=== PATIENT | female | born 1955 | race Caucasian/White ===

== ENCOUNTER → 2017-03-07 | Outpatient (CLI) | payer OTHER ==
[2017-03-07 13:51] LABS: BLOOD UREA NITROGEN 12 mg/dl (7-18); BUN/CREATININE RATIO 17.4 (10-20); CARBON DIOXIDE 28 mmol/L (21-32); CHLORIDE 108 mmol/L (98-107); CHOLESTEROL 200 mg/dl (0-200); GLUCOSE 99 mg/dl (70-99); POTASSIUM 4.5 mmol/L (3.5-5.1); SODIUM 140 mmol/L (136-145); TRIGLYCERIDES 126 mg/dl (0-150); VERY LOW DENSITY LIPOPROT CALC 25 mg/dl
[2017-03-07 13:58] LABS: CHOLESTEROL/HDL RATIO 4.4; HDL CHOLESTEROL 45 mg/dl; LDL CHOLESTEROL CALCULATED 130 mg/dl
== END | disposition home or self-care (01) ==
LOC: C.LABPBG 07:46
PROVIDERS: ATTEND Family Medicine
DX: Z11.59 Encounter for screening for other viral diseases (principal); I10 Essential (primary) hypertension; E03.9 Hypothyroidism, unspecified; Z13.220 Encounter for screening for lipoid disorders

== ENCOUNTER → 2017-03-20 | Outpatient (CLI) | payer OTHER ==
--- NOTE | 2017-03-20 13:44 | DIAGNOSTIC IMAGING REPORT ---
LEFT HIP UNILATERAL 2 VIEWS CLINICAL HISTORY: M25.552 Left hip paint with increasing hip pain with radiation pain COMPARISON: None. DISCUSSION: Mild degenerative change left hip. No evidence for acetabular protrusion. Mild degenerative change symphysis pubis and left sacroiliac joint. No abnormal soft tissue calcifications. There is no evidence for soft tissue swelling. IMPRESSION: Mild to moderate degenerative change. No acute process. Electronically signed by: Justen Awad M.D. 03/20/2017 1:42 PM Dictated Date/Time: 03/20/2017 1:40 PM
== END | disposition home or self-care (01) ==
LOC: C.RAD 12:58
PROVIDERS: ATTEND Family Medicine
DX: M25.552 Pain in left hip (principal)

== ENCOUNTER → 2017-06-06 | Outpatient (CLI) | payer OTHER ==
[2017-06-06 12:39] LABS: THYROID STIMULATING HORMONE 4.87 uIu/ml (0.300-4.500)
== END | disposition home or self-care (01) ==
LOC: C.LABPBG 09:02
PROVIDERS: ATTEND Family Medicine
DX: E03.9 Hypothyroidism, unspecified (principal)

== ENCOUNTER → 2017-08-12 | Outpatient (CLI) | payer OTHER ==
--- NOTE | 2017-08-12 16:19 | DIAGNOSTIC IMAGING REPORT ---
RIGHT FIRST TOE 3 VIEWS HISTORY: M79.674 Great toe pain, right stubbed toe against step approx. COMPARISON: None. FINDINGS: There is no fracture or dislocation. Mild soft tissue swelling within the first toe. No underlying bony destruction to suggest osteomyelitis. 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 No radiopaque foreign bodies. IMPRESSION: Mild soft tissue swelling within the right first toe. No fractures. No bony erosions. Electronically signed by: Felipe Gilman M.D. 08/12/2017 4:18 PM Dictated Date/Time: 08/12/2017 4:16 PM
== END | disposition home or self-care (01) ==
LOC: C.RAD 15:52
PROVIDERS: ATTEND Family Medicine
DX: M79.674 Pain in right toe(s) (principal)